=== PATIENT | male | born 1955 | race Caucasian/White ===

== ENCOUNTER 2016-07-14 10:55 | Emergency (ER) | payer OTHER ==
[~2016-07-14] VITALS: Ht 180.3 cm; Wt 83.6 kg
[2016-07-14 10:58] VITALS: TEMP 97.8
[2016-07-14] MEDS ORDERED: XANAX .25M0.25 MG/TA PO (12:01)
[2016-07-14] MEDS ORDERED: ZOLOFT 25MG25 MG PO (12:01)
[2016-07-14] MEDS ORDERED: LUNESTA3 MG PO (12:02)
[2016-07-14] MEDS ORDERED: ASPIRIN 81M81 MG/TA2 PO (12:03)
[2016-07-14 12:04] LABS: ADJUSTED CALCIUM 9.4 mg/dL (8.4-10.2); ALANINE AMINOTRANSFERASE 27 U/L (21-72); ALBUMIN 4.2 gm/dL (3.5-5.0); ALKALINE PHOSPHATASE 70 U/L (50-136); ANION GAP 8 mmol/L (7-16); BLOOD UREA NITROGEN 19 mg/dL (9-20); CALCIUM 9.6 mg/dL (8.4-10.2); CARBON DIOXIDE 30 mmol/L (22-30); CHLORIDE 100 mmol/L (98-107); CREATININE, serum 1.25 mg/dL (0.66-1.25); GLUCOSE 89 mg/dL (74-106); POTASSIUM 3.8 mmol/L (3.4-5.0); SODIUM 138 mmol/L (137-145); TOTAL PROTEIN 6.7 gm/dL (6.4-8.2)
[2016-07-14 12:05] LABS: PH 8 (5-8); SQUAMOUS EPITHELIAL None Seen /hpf; URINE APPEARANCE Hazy; URINE BACTERIA None Seen /hpf; URINE BILIRUBIN Negative (NEGATIVE); URINE BLOOD Negative (NEGATIVE); URINE COLOR Yellow; URINE GLUCOSE Negative (NEGATIVE); URINE KETONE Negative (NEGATIVE); URINE RBC None Seen /hpf; URINE UROBILINOGEN Negative (NEGATIVE); URINE WBC None Seen /hpf
[2016-07-14 12:10] LABS: C-REACTIVE PROTEIN < 0.5 mg/dL (0.0-0.9)
[2016-07-14 12:12] LABS: BASO % 0.7 % (0.0-2.0); EOS # 0.1 (0.0-0.7); EOS % 1.4 % (0-4.0); GRAN # 3.3 (1.4-6.5); GRAN % 57.4 % (42.2-75.2); HEMATOCRIT 40.6 % (42.0-52.0); HEMOGLOBIN 13.7 g/dl (13.5-18.0); LYMPH % 34.4 % (20.0-51.0); MEAN CELL VOLUME 83 fl (80.0-100.0); MEAN CORPUSCULAR HEMOGLOBIN 28 pg (27.0-31.0); MEAN CORPUSCULAR HGB CONC 34 g/dl (33.0-37.0); MONO # 0.3 (0.1-0.6); MONO % 5.4 % (1.7-9.3); PLATELET COUNT 120 K/mm3 (130-400); RED BLOOD COUNT 4.87 M/mm3 (4.20-5.60); REDCELL DISTRIBUTION WIDTH-CV 12.7 % (11.5-14.5); WHITE BLOOD COUNT 5.7 K/mm3 (4.8-10.8)
[2016-07-14 12:13] LABS: TROPONIN-I < 0.012 ng/mL (0.000-0.034)
[2016-07-14] MEDS ORDERED: DYAZIDE 25 MG-31 CAP PO (12:37)
[2016-07-14 16:19] VITALS: BP 118/79; PULSE 58
== END 2016-07-14 14:00 | disposition home or self-care (01) ==
LOC: COL.ER 10:55
PROVIDERS: Emergency Medicine
DX: I49.49 Other premature depolarization (principal); I10 Essential (primary) hypertension
CPT/HCPCS: J7030